=== PATIENT | male | born 1965 | race Caucasian/White ===

== ENCOUNTER 2024-03-27 13:45 | Outpatient (AMB) | payer BC, SELFPAY ==
--- NOTE | 2024-03-27 13:48 | HO.NEPHOV_ITS ---
Vital Signs 03/27/24 13:50 03/27/24 14:16 Height 5 ft 9 in Weight 209 lb 4 oz BMI 30.9 BP 124/90 H 120/82 Blood Pressure Location Lt brachial Lt brachial Position Sitting Sitting Pulse 71 Pulse Source Pulse Oximeter Pulse Oximetry (%) 94 Oxygen Delivery Method Room Air Intake Visit Reasons: Hyperuricemia/ continuing care/ Confirmed Aligning Inspector Required: No Accompanied by: Self / Same As Patient Allergies No Known Allergies Allergy (Verified 03/27/24 13:53) HPI Comments Details: 58-year-old man with history of hypertension and mild CKD. Serum creatinine has been around 1.71.8 mg/dL since 2010. He has a history of gout for more than 20 years. He was on allopurinol which was stopped and he had an episode of gout after discontinuing allopurinol and subsequently start her on Uloric. No further gout episodes. MRI showed fatty liver with asymptomatic gallstones. He is undergone cholecystectomy. During his last visit the lisinopril was discontinued since his blood pressure was relatively low and he did not have significant proteinuria. Today he is here for semiannual follow-up. No specific complaints today. He is gained about 10 lb. [facility] Medical History (Updated 03/27/24 @ 14:13 by Tomi Garcia MD) HTN (hypertension) Surgical History (Updated 03/27/24 @ 13:55 by Brianna Lehman MA) History of cholecystectomy Social History (Updated 03/27/24 @ 13:55 by Brianna Lehman MA) Alcohol intake: never Patient Tobacco Use Status: Never used Tobacco Physical Exam Vital Signs: Last Vital Signs Pulse 71 03/27/24 13:50 BP 124/90 H 03/27/24 13:50 Pulse Ox 94 03/27/24 13:50 Oxygen Delivery Method Room Air 03/27/24 13:50 BMI result Body Mass Index 30.9 Const General: comfortable Nutritional Appearance: well nourished Orientation/consciousness: patient oriented x3 HEENT Head: No normal to inspection Mouth: moist mucous membranes Neck Neck: Yes supple and Yes no JVD Resp Auscultation: clear to auscultation bilaterally, no rales and rub present Cardio Jugular venous distension: no JVD Palpation: no palpable S3 and no palpable S4 Heart sounds: no rubs GI Palpation (GI): Soft to palpation and nontender Percussion: No Fluid wave present General: Yes no CVA tenderness Back/Spine/Pelvis Back: no CVA tenderness Skin General skin exam: no rashes or lesions noted Neuro General: patient oriented x3 Extrem General: Yes no pedal edema and No clubbing Results Reviewed Results Reviewed: Labs are pending Nephrology Results: No Data to Display Assessment & Plan Assessment & Plan (1) HTN (hypertension): Code(s): I10 - Essential (primary) hypertension Category: Medical (2) CKD (chronic kidney disease): Code(s): N18.9 - Chronic kidney disease, unspecified Category: Medical (3) Gout: Code(s): M10.9 - Gout, unspecified Category: Medical Plan 58-year-old man with longstanding hypertension and CKD. Renal function stable. We will recheck the serum creatinine today. Goal is to slow the portion disease Continue to avoid nephrotoxic agents including NSAIDs Blood pressure is well controlled. Stay on current medications discussed weight loss. He should stay on low-sodium diet Gout stable. Continue with Uloric stay on low purine diet History of microalbuminuria. The recent microalbumin creatinine ratio was less than 6. He has currently not on TERESITA inhibitors since his blood pressure is well controlled we will monitor urine protein excretion and restart TERESITA inhibitors if needed Orders: Orders Basic Metabolic Panel Today I10 - Essential (primary) hypertension Total Protein Urine Random Today I10 - Essential (primary) hypertension Creatinine Urine Today I10 - Essential (primary) hypertension, N05.9 - Unspecified nephritic syndrome with unspecified morphologic changes Uric Acid Today I10 - Essential (primary) hypertension Coding Level of Care Code Est Pt Level 4 (30163) Diagnoses HTN (hypertension) I10 CKD (chronic kidney disease) N18.9 Gout M10.9
[2024-03-27 13:50] VITALS: BP 124/90; PULSE 71; O2SAT 94; BMI 30.9
[2024-03-27 14:16] VITALS: BP 120/82
== END 2024-03-27 14:10 | disposition home or self-care (01) ==
PROVIDERS: PCP Internal Medicine; Visit Provider Internal Medicine Hypertension Specialist
DX: I12.9 Hypertensive chronic kidney disease with stage 1 through stage 4 chronic kidney disease, or unspecified chronic kidney disease (principal); N18.9 Chronic kidney disease, unspecified; M10.9 Gout, unspecified
CPT/HCPCS: 99214

== ENCOUNTER → 2024-03-27 13:45 | Outpatient (BNVA) | payer BC, SELFPAY | PROVIDERS: PCP Internal Medicine; Visit Provider Internal Medicine Hypertension Specialist | DX: I10 Essential (primary) hypertension (principal); N18.9 Chronic kidney disease, unspecified; M10.9 Gout, unspecified ==

== ENCOUNTER 2024-12-25 13:37 | Outpatient (AMB) | payer BC, SELFPAY ==
[2024-12-25 13:39] VITALS: BP 128/86; PULSE 75; O2SAT 96; BMI 31.0
--- NOTE | 2024-12-25 13:39 | HO.NEPHOV_ITS ---
Vital Signs 12/25/24 13:39 Height 5 ft 9 in Weight 210 lb BMI 31.0 BP 128/86 Blood Pressure Location Lt brachial Position Sitting Pulse 75 Pulse Source Pulse Oximeter Pulse Oximetry (%) 96 Oxygen Delivery Method Room Air Intake Visit Reasons: Hyperuricemia/ 9 month follow up/ lvm Sales And Leasing Agent Required: No Accompanied by: Self / Same As Patient Allergies No Known Allergies Allergy (Verified 12/25/24 13:41) Medication List - Last Reconciled 12/25/24 by Tomi Garcia MD atenolol 25 mg PO DAILY cetirizine (Zyrtec) 10 mg PO DAILY febuxostat 40 mg PO DAILY fluticasone propionate 50 mcg/actuation 1 spray intranasal DAILY lutein 20 mg PO DAILY montelukast 10 mg PO DAILY multivitamin 1 tab PO DAILY omega 8-zzh-slm-fish oil 1,000 (120-180) mg (Fish Oil) 1 cap PO DAILY vit C-E-zinc ex-xfze-ufi-zeax 250 mg-200 unit -12.5 mg-1 mg (ICaps AREDS2) caps PO DAILY HPI Comments Details: 59-year-old man with history of hypertension and mild CKD. Serum creatinine has been around 1.7 to 1.8 mg/dL since 2010. He has a history of gout for more than 20 years. He was on allopurinol which was stopped and he had an episode of gout after discontinuing allopurinol and subsequently start her on Uloric. No further gout episodes. MRI showed fatty liver with asymptomatic gallstones. He is undergone cholecystectomy. During his last visit the lisinopril was discontinued since his blood pressure was relatively low and he did not have significant proteinuria. Today he is here for semiannual follow-up. No specific complaints today. He is gained about 10 lb. 12/25/23 Overall doing well Recently had URT infection and resolved PFSH Medical History (Updated 03/27/24 @ 14:13 by Tomi Garcia MD) HTN (hypertension) Surgical History History of cholecystectomy Social History Alcohol intake: never Patient Tobacco Use Status: Never used Tobacco Physical Exam Vital Signs: BMI result Body Mass Index 31.0 Results Reviewed Nephrology Results: No Data to Display Assessment & Plan Assessment & Plan (1) HTN (hypertension): Code(s): I10 - Essential (primary) hypertension Category: Medical (2) CKD (chronic kidney disease): Code(s): N18.9 - Chronic kidney disease, unspecified Category: Medical (3) Gout: Code(s): M10.9 - Gout, unspecified Category: Medical Plan 58-year-old man with longstanding hypertension and CKD. Renal function stable. We will recheck the serum creatinine today. Goal is to slow the progression of renal disease Continue to avoid nephrotoxic agents including NSAIDs Blood pressure is well controlled. Stay on current medications discussed weight loss. He should stay on low-sodium diet Gout stable. Continue with Uloric stay on low purine diet History of microalbuminuria. The recent microalbumin creatinine ratio was less than 6. He has currently not on TERESITA inhibitors since his blood pressure is well controlled we will monitor urine protein excretion and restart TERESITA inhibitors if needed Orders: Orders Uric Acid Today I10 - Essential (primary) hypertension, M10.9 - Gout, unspecified, N18.9 - Chronic kidney disease, unspecified Basic Metabolic Panel Today I10 - Essential (primary) hypertension, M10.9 - Gout, unspecified, N18.9 - Chronic kidney disease, unspecified Complete Blood Count no Diff Today I10 - Essential (primary) hypertension, M10.9 - Gout, unspecified, N18.9 - Chronic kidney disease, unspecified Coding Level of Care Code Est Pt Level 4 (57892) Diagnoses HTN (hypertension) I10 CKD (chronic kidney disease) N18.9 Gout M10.9
--- OUTSIDE RECORDS SUMMARY | 2024-12-25 15:00 | XMS_ITS | Clinical Summary ---
Author Organization [facility] Address [address] [place] [id number] Care Team Providers Care Utility Specialist Name Role Phone Matteo Leon MD Primary Care Provider Tania Austin PA-C Unavailable [phone] Aniyah Whitt RN Unavailable [phone] Matteo Leon MD Unavailable [phone] Allergies Active Allergy Reactions Criticality Noted Date Comments Other Other (See Comments) 10/17/2016 Dust causes stuffiness Medications Medication Sig Dispensed Refills Start Date End Date Status allopurinol (ZYLOPRIM) 100 mg tablet Take 100 mg by mouth nightly. Active atenolol (TENORMIN) 25 MG tablet Take 25 mg by mouth nightly. Active lisinopril (PRINIVIL,ZeSTRIL) 5 MG tablet Take 5 mg by mouth nightly. Active cetirizine (ZyrTEC) 10 MG tablet Take 10 mg by mouth nightly. Active montelukast (SINGULAIR) 10 MG tablet Take 10 mg by mouth nightly. Active Multiple Vitamin (MULTIVITAMIN) capsule Take 1 capsule by mouth daily. Active oxyCODONE-acetaminoph en (PERCOCET) 5-325 mg per tabletIndications:Chr onic pansinusitis Take 1 tablet by mouth every 4 (four) hours as needed for moderate pain. Max Daily Amount: 6 tablets 30 tablet 0 10/19/2016 Active fish oil-omega-3 fatty acids 1000 MG capsule Take by mouth. Active colchicine (COLCRYS) 0.6 mg tablet 04/09/2021 Active cetirizine-pseudoephe drine (ZyrTEC-D Allergy & Congestion) 5-120 MG per tablet by Does not apply route. 05/04/2020 Active dicyclomine (BENTYL) 10 MG capsule 04/13/2021 Active Omeprazole 20 MG Tablet Delayed Release Dispersible Take 20 mg by mouth. 04/13/2021 Active predniSONE (DELTASONE) 20 MG tablet TAKE 3 DAILY FOR 3 DAYS 04/09/2021 Active Active Problems Problem Noted Date Diagnosed Date Elevated LFTs 04/27/2021 Assessment & Plan (04/27/2021 12:09 PM EDT): Elevated AST of 389 and ALT of 323, elevated total bilirubin of 1.7 at ED visit on 04/13/21. Lipase was also slightly elevated at 92. Will repeat lab work including CBC, CMP and lipase Will obtain abdominal ultrasound to evaluate biliary system to rule out stones/obstruction Will call patient with results Epigastric pain 04/27/2021 Assessment & Plan (04/27/2021 12:10 PM EDT): Will obtain abdominal ultrasound and updated labs as stated above ?biliary causes vs acid Continue with omeprazole 20 mg once daily for now Will determine next steps once imaging and lab work is completed ?Need for ERCP vs EGD Avoid/limit tobacco, alcohol, chocolate, peppermint, caffeine, greasy foods, spicy foods, and acidic foods such as citrus and tomato. Eat smaller, more frequent meals, and do not eat within 2 hours of bedtime. If you have night-time symptoms, elevate the head of the bed 6 to 12 inches. Personal history of colonic polyps 04/27/2021 Assessment & Plan (04/27/2021 12:11 PM EDT): High fiber diet. Adenoma-carcinoma sequence discussed. Last colon: 2008--will attempt to get report from last colonoscopy. Polyps removed per patient +10 years since last colonoscopy Will discuss repeating colonoscopy after the above is completed Social History Tobacco Use Types Packs/Day Years Used Date Smoking Tobacco: Never Alcohol Use Standard Drinks/Week Comments Not Currently 0 (1 standard drink = 0.6 oz pur e alcohol) 2 x year Sex and Gender Information Value Date Recorded Sex Assigned at Not on file Gender Identity Not on file Sexual Orientation Not on file Last Filed Vital Signs Vital Sign Reading Time Taken Comments Blood Pressure 120/98 05/25/2021 9:05 AM EDT Pulse 67 05/25/2021 9:05 AM EDT Temperature 35.9 ??C (96.7 ??F) 05/25/2021 9:05 AM ED T Respiratory Rate 21 10/19/2016 1:45 PM EST Oxygen Saturation 96% 05/25/2021 9:05 AM EDT Inhaled Oxygen Concentration - - Weight 88.5 kg (195 lb) 05/25/2021 9:05 AM EDT Height 175.3 cm (5' 9 ) 05/25/2021 9:05 AM EDT Body Mass Index 28.8 05/25/2021 9:05 AM EDT Plan of Treatment Health Maintenance Due Date Last Done Comments Hepatitis C Virus Screening 1967 HIV Screening 1980 DTaP/Tdap/Td Vaccines (1 - Tdap) 1986 Hepatitis B Vaccines (1 of 3 - 19+ 3-dose series) 1986 Colonoscopy 2012 Pneumococcal Vaccines 50+ (1 of 1 - PCV) 2017 Zoster (Shingles) Vaccine (1 of 2) 2017 Influenza Vaccine 06/20/2024 09/01/2021, 08/20/2020 COVID-19 Vaccine (4 - 2023-2 5 season) 2024 11/10/2021, 03/16/2021, 02/17/2021 Pneumococcal Vaccine: Pediatric (0-5 Years) and At-Risk Patients (6 to 49 Years) Aged Out No longer eligible b ased on patient's age to complete this topic Advance Directives * Full Code (Latest Code Status on File) Date Activated Date Inactivated Comments 10/19/2016 8:53 AM 10/19/2016 5:08 PM Care Teams Utility Specialist Relationship Specialty Start Date End Date Matteo Leon MD [address] [place] [address] PCP - General Internal Medicine 04/26/21 Matteo Leon MD [address] [place] [address] PCP - [place] [employer] Attributed 09/20/21 Tania Austin PA-C [address] [place] [address] Physician [employer] [facility] 05/11/21 Aniyah Whitt, RN [address] [place] [id number] Registered Nurse Hepatology 05/11/21
--- OUTSIDE RECORDS SUMMARY | 2024-12-25 15:00 | XMS_ITS | Clinical Summary ---
Author Organization [facility] Address [address] [address] Care Team Providers Care Investigator Vice Name Role Phone Matteo Leon MD Primary Care Provider [phone] Allergies Active Allergy Reactions Criticality Noted Date Comments Other Other (see comments) 10/17/2016 Dust causes stuffiness Medications cetirizine (ZyrTEC) 10 MG tablet Take 10 mg by mouth Active fluticasone (FLONASE) 50 MCG/ACT nasal spray Administer 1 spray into each nostril 1 (one) time each day Active montelukast (SINGULAIR) 10 MG tablet 1 Active Multiple Vitamin (multivitamin) capsule Take 1 capsule by mouth 1 (one) time each day Active omega-3 (FISH OIL) 1000 MG capsule Take by mouth Active lisinopril 5 MG tablet TAKE 1 TABLET ONCE DAILY 90 tablet 3 2 Active atenolol (TENORMIN) 25 MG tablet TAKE 1 TABLET DAILY 90 tablet 3 3 Active Misc Natural Products (LUTEIN 20 PO) Take by mouth A ctive Active Problems Problem Noted Date Diagnosed Date Chronic kidney disease stage 3 08/11/2021 Hypertensive chronic kidney disease, unspecified, with chronic kidney disease stage I through stage IV, or unspecified 08/11/2021 Polycythemia, secondary 08/11/2021 Epigastric pain 04/27/2021 Overview (08/11/2021): Last Assessment & Plan: Will obtain abdominal ultrasound and updated labs [...] of the bed 6 to 12 inches. History of polyp of colon 04/27/2021 Overview (08/11/2021): Last Assessment & Plan: High fiber diet. Adenoma-carcinoma sequence discussed. Last colon: 2008--will attempt to get report from last colonoscopy. Polyps removed per patient +10 years since last colonoscopy Will discuss repeating colonoscopy after the above is completed Liver function tests outside reference range 06/2021 Overview (08/11/2021): Last Assessment & Plan: Elevated AST of 389 and ALT of 323, elevated total bilirubin of 1.7 at ED visit on 04/13/21. Lipase was also slightly elevated at 92. Will repeat lab work including CBC, CMP and lipase Will obtain abdominal ultrasound to evaluate biliary system to rule out stones/obstruction Will call patient with results Family History Relation Status Comments Father Unknown Mother Unknown Social History Tobacco Use Types Packs/Day Years Used Date Smoking Tobacco: Never Smokeless Tobacco: Never Tobacco Cessation:Counseling Given: No Alcohol Use Standard Drinks/Week Comments No 0 (1 standard drink = 0.6 oz pur e alcohol) Sex and Gender Information Value Date Recorded Sex Assigned at Not on file Legal Sex Male 5:01 PM EST Gender Identity Not on file Sexual Orientation Not on file Last Filed Vital Signs Vital Sign Reading Time Taken Comments Blood Pressure 104/62 07/11/2023 1:24 PM EDT Pulse 69 07/11/2023 1:24 PM EDT Temperature - - Respiratory Rate - - Oxygen Saturation 97% 07/11/2023 1:24 PM EDT Inhaled Oxygen Concentration - - Weight 90.7 kg (200 lb) 07/11/2023 1:24 PM EDT Height 175.3 cm (5' 9 ) 10/27/2020 12:00 PM EST Body Mass Index 29.53 10/27/2020 12:00 PM EST Plan of Treatment Health Maintenance Due Date Last Done Comments Pneumococcal Vaccine: Pediat rics (0 to 5 Years) and At-Risk Patients (6 to 64 Years) (1 of 2 - PCV) 1973 Hepatitis B Vaccine (1 of 3 - 19+ 3-dose series) 10/26 Colorectal Cancer Screening: Annual FOBT 2016 Colorectal Cancer Screening: Colonoscopy 2016 Colorectal Cancer Screening: Sigmoidoscopy 2016 Influenza Vaccine (#1) [address] Care Teams Investigator Vice Relationship Specialty Start Date End Date Matteo Leon MD [address] [place], [place] PCP - General 11/30/20
--- OUTSIDE RECORDS SUMMARY | 2024-12-25 15:00 | XMS_ITS | Clinical Summary ---
Author Organization [employer] [facility] Address [address] [place] [address] Care Team Providers Care Concrete Puddler Name Role Phone Matteo Leon MD Primary Care Provider [phone] Surgical History Surgery Date Site/Laterality Comments NASAL POLYP EXCISION PROCEDURE:NASAL POLYP EXCISION;COMMENT:x2 COLONOSCOPY PROCEDURE:COLONOSCOPY CHOLECYSTECTOMY 09/17/2021 N/A PROCEDURE:CHOLECYSTECTOMY;COMMENT:Pro cedure: LAPAROSCOPY CHOLECYSTECTOMY; Surgeon: Carrie Adams MD; Location: [facility]; Service: General; Laterality: N/A; Medical History Medical History Date Comments Hypertension DX:Hypertension Gout DX:Gout Environmental allergies DX:Envir onmental allergies Family History Medical History Relation Name Comments Diabetes Maternal Grandmother Relation Name Status Comments Maternal Grandmother Social History Tobacco Use Types Packs/Day Years Used Date Smoking Tobacco: Never Smokeless Tobacco: Never Alcohol Use Standard Drinks/Week Comments Yes 0 (1 standard drink = 0.6 oz pur e alcohol) Sex and Gender Information Value Date Recorded Sex Assigned at Not on file Gender Identity Not on file Sexual Orientation Not on file Obstetrics History Plan of Treatment Health Maintenance Due Date Last Done Comments DTaP,Tdap,and Td Vaccines (1 - Tdap) 1986 Hepatitis B Vaccines (1 of 3 - 19+ 3-dose series) 1986 Zoster Vaccines (1 of 2) 2017 Cholesterol Screening (Lipid Panel) 10/23/2022 Colorectal Cancer Screening: Colonoscopy 10/23/2022 Depression Screening 10/23/2022 HIV Screening 10/23/2022 Hepatitis C Screening 10/23/2022 Social Influencers of Health Screening 10/23/2022 COVID-19 Vaccine (1 2023-2 5 season) 2024 Influenza Vaccine (#1) 2024 HIB Vaccines Aged Out No longer eligi ble based on patient's age to complete this topic HPV Vaccines Aged Out No longer eligi ble based on patient's age to complete this topic Hepatitis A Vaccines Aged Out No long er eligible based on patient's age to complete this topic IPV Vaccines Aged Out No longer eligi ble based on patient's age to complete this topic MMR Vaccines Aged Out No longer eligi ble based on patient's age to complete this topic Meningococcal ACWY Vaccine Aged Out N o longer eligible based on patient's age to complete this topic Pneumococcal Vaccine: Pediat rics (0 to 5 Years) and At-Risk Patients (6 to 64 Years) Aged Out No longer eligible b ased on patient's age to complete this topic RSV Immunization Patients Un donnie 20 months Aged Out No longer eligible b ased on patient's age to complete this topic Varicella Vaccines Aged Out No longer eligible based on patient's age to complete this topic Advance Directives Documents on File Type Date Recorded Patient Cargo Station Worker Expl anation Health Care Decision (hx) 09/17/2021 CINDY LOYA WILL Care Teams Concrete Puddler Relationship Specialty Start Date End Date Matteo Leon MD [address] [place] [id number] PCP - General Internal Medicine 04/13/21
--- OUTSIDE RECORDS SUMMARY | 2024-12-25 15:00 | XMS_ITS ---
Author Name [facility] Organization Unknown History of Medication Use Medication Directions Dispensed Refills Start Date End Date Stat us luteinTakeNo date recordedNo form recordedNo frequency recordedNo route recordedNo set duration recordedNo set duration amount recordedactiveNo dosage strength recordedNo dosage strength units of measure recorded active Medrol (Veto)Take 6 t ablet (Oral) 1 time per day for 1 days Take One Pack As [id number],do se pack1 time per [id number] 09/17/2023 active Bactrim DSTake 1 Tab let (oral) 2 times per day for 10 [id number] times per [id number]- 160mg 12/23/2021 suspended ZyrtecTakeNo date recordedNo form recordedNo frequency recordedNo route recordedNo set duration recordedNo set duration amount recordedactiveNo dosage strength recordedNo dosage strength units of measure recorded active Flonase Allergy ReliefTakeNo date recordedNo form recordedNo frequency recordedNo route recordedNo set duration recordedNo set duration amount recordedactiveNo dosage strength recordedNo dosage strength units of measure recorded active SingulairTakeNo date recordedNo form recordedNo frequency recordedNo route recordedNo set duration recordedNo set duration amount recordedactiveNo dosage strength recordedNo dosage strength units of measure recorded active multivitaminTakeNo d ate recordedNo form recordedNo frequency recordedNo route recordedNo set duration recordedNo set duration amount recordedactiveNo dosage strength recordedNo dosage strength units of measure recorded active Problems Problem Status Onset Date Problem Type Date of Resoluti on Source Idiopathic gout, unspecified site active 2021-04-09 [facility] [facility] Impacted cerumen, bilateral active 2023-09-17 [facility]Act [facility] Essential (primary) hypertension active [facility]Act [facility] Jaw pain active 2023-09-17 [facility] [facility] [place] Chronic kidney disease, unspecified active 2021-04-09 ProblemAct [facility]
== END 2024-12-25 13:56 | disposition home or self-care (01) ==
PROVIDERS: PCP Internal Medicine; Visit Provider Internal Medicine Hypertension Specialist
DX: I12.9 Hypertensive chronic kidney disease with stage 1 through stage 4 chronic kidney disease, or unspecified chronic kidney disease (principal); N18.9 Chronic kidney disease, unspecified; M10.9 Gout, unspecified
CPT/HCPCS: 99214

== ENCOUNTER → 2024-12-25 13:37 | Outpatient (BNVA) | payer BC, SELFPAY | PROVIDERS: PCP Internal Medicine; Visit Provider Internal Medicine Hypertension Specialist | DX: I10 Essential (primary) hypertension (principal) ==

== ENCOUNTER 2025-10-01 13:25 | Outpatient (AMB) | payer BC, SELFPAY ==
[2025-10-01 13:31] VITALS: BP 120/80; PULSE 68; O2SAT 96; BMI 31.3
--- NOTE | 2025-10-01 13:31 | HO.NEPHOV ---
Vital Signs 10/01/25 13:31 Height 5 ft 9 in Weight 212 lb BMI 31.3 BP 120/80 Blood Pressure Location Rt brachial Position Sitting Pulse 68 Pulse Source Pulse Oximeter Pulse Oximetry (%) 96 Oxygen Delivery Method Room Air Intake Visit Reasons: 9 Month F/U Health Policy Analyst Required: No Accompanied by: Self / Same As Patient Allergies No Known Allergies Allergy (Verified 10/01/25 13:33) Medication List - Last Reconciled 10/01/25 by Tomi Garcia MD atenolol 25 mg PO DAILY cetirizine (Zyrtec) 10 mg PO DAILY febuxostat 40 mg PO DAILY fluticasone propionate 50 mcg/actuation 1 spray intranasal DAILY lutein 20 mg PO DAILY montelukast 10 mg PO DAILY multivitamin 1 tab PO DAILY omega 5-xul-xxg-fish oil 1,000 (120-180) mg (Fish Oil) 1 cap PO DAILY vit C-E-zinc ym-nnfb-tcf-zeax 250 mg-200 unit -12.5 mg-1 mg (ICaps AREDS2) caps PO DAILY HPI Comments Details: 59-year-old man with history of hypertension and mild CKD. Serum creatinine has been around 1.7 to 1.8 mg/dL since 2010. He has a history of gout for more than 20 years. He was on allopurinol which was stopped and he had an episode of gout after discontinuing allopurinol and subsequently start her on Uloric. No further gout episodes. MRI showed fatty liver with asymptomatic gallstones. He is undergone cholecystectomy. During his last visit the lisinopril was discontinued since his blood pressure was relatively low and he did not have significant proteinuria. Today he is here for semiannual follow-up. No specific complaints today. He is gained about 10 lb. 12/25/23 Overall doing well; Recently had URT infection and resolved 10/01/25 The patient is a 59-year-old male presenting for a 9-month follow-up visit. The patient reports stable blood pressure readings, with a recent measurement of 120/80 mmHg, and no changes in medication since the last visit. The patient is currently taking febuxostat, atenolol, and montelukast, with no reported side effects such as lightheadedness. The patient reports heel pain, likely due to plantar fasciitis, which has improved with the use of proper footwear. The pain was exacerbated by wearing ill-fitting shoes during a sporting event with extensive walking. The patient had a blood test after the last visit in December, with results showing stable values except for a consistently elevated parameter at 1.84. The patient is scheduled for a follow-up blood and urine test before the next visit, as previous tests have shown stability. [facility] Medical History (Updated 03/27/24 @ 14:13 by Tomi Garcia MD) HTN (hypertension) Surgical History History of cholecystectomy Social History Alcohol intake: never Patient Tobacco Use Status: Never used Tobacco Physical Exam Vital Signs: Last Vital Signs Pulse 68 10/01/25 13:31 BP 120/80 10/01/25 13:31 Pulse Ox 96 10/01/25 13:31 Oxygen Delivery Method Room Air 10/01/25 13:31 BMI result Body Mass Index 31.3 Comfortable Neck supple no JVD. Lungs entry equal no rales. Heart S1-S2 heard no gallop or rub. Abdomen soft nontender. Neuro alert awake oriented. No asterixis. Extremities no edema. Const General: comfortable Nutritional Appearance: well nourished Orientation/consciousness: patient oriented x3 HEENT Head: No normal to inspection Mouth: moist mucous membranes Neck Neck: Yes supple and Yes no JVD Resp Auscultation: clear to auscultation bilaterally, no rales and rub present Cardio Jugular venous distension: no JVD Palpation: no palpable S3 and no palpable S4 Heart sounds: no rubs GI Palpation (GI): Soft to palpation and nontender Percussion: No Fluid wave present General: Yes no CVA tenderness Back/Spine/Pelvis Back: no CVA tenderness Skin General skin exam: no rashes or lesions noted Neuro General: patient oriented x3 Extrem General: Yes no pedal edema and No clubbing Assessment & Plan Assessment & Plan (1) HTN (hypertension): Code(s): I10 - Essential (primary) hypertension Category: Medical (2) CKD (chronic kidney disease): Code(s): N18.9 - Chronic kidney disease, unspecified Category: Medical (3) Gout: Code(s): M10.9 - Gout, unspecified Category: Medical Plan 59-year-old man with longstanding hypertension and CKD. Renal function stable. We will recheck the serum creatinine today. Goal is to slow the progression of renal disease Continue to avoid nephrotoxic agents including NSAIDs Blood pressure is well controlled. Stay on current medications discussed weight loss. He should stay on low-sodium diet Gout stable. Continue with Uloric stay on low purine diet History of microalbuminuria. The recent microalbumin creatinine ratio was less than 6. He has currently not on TERESITA inhibitors since his blood pressure is well controlled we will monitor urine protein excretion and restart TERESITA inhibitors if needed Orders: Orders Creatinine Urine 9 Months I10 - Essential (primary) hypertension, N18.9 - Chronic kidney disease, unspecified UA and rflx microscopic 9 Months I10 - Essential (primary) hypertension, N18.9 - Chronic kidney disease, unspecified Total Protein Urine Random 9 Months I10 - Essential (primary) hypertension, N18.9 - Chronic kidney disease, unspecified Basic Metabolic Panel 9 Months I10 - Essential (primary) hypertension, N18.9 - Chronic kidney disease, unspecified Complete Blood Count Auto Diff 9 Months I10 - Essential (primary) hypertension, N18.9 - Chronic kidney disease, unspecified Coding Level of Care Code Est Pt Level 4 (19362) Diagnoses HTN (hypertension) I10 CKD (chronic kidney disease) N18.9 Gout M10.9
--- OUTSIDE RECORDS SUMMARY | 2025-10-01 16:17 | XMS_ITS | Clinical Summary ---
Author Organization [email or web address] [employer] it Address [address] [place] [address] Care Team Providers Care Car Hop Name Role Phone Matteo Leon MD Primary Care Provider [phone] Surgical History Surgery Date Site/Laterality Comments NASAL POLYP EXCISION PROCEDURE:NASAL POLYP EXCISION;COMMENT:x2 COLONOSCOPY PROCEDURE:COLONOSCOPY CHOLECYSTECTOMY 09/17/2021 N/A PROCEDURE:CHOLECYSTECTOMY;COMMENT:Pro cedure: LAPAROSCOPY CHOLECYSTECTOMY; Surgeon: Carrie Adams MD; Location: [facility]; Service: General; Laterality: N/A; Medical History [...] at Not on file Legal Sex Male 6:56 AM EST Gender Identity Not on file Sexual Orientation Not on file Obstetrics History Plan of Treatment Health Maintenance Due Date Last Done Comments Colorectal Cancer Screening: Colonoscopy 1967 DTaP,Tdap,and Td Vaccines (1 - Tdap) 1986 Hepatitis B Vaccines (1 of 3 - 19+ 3-dose series) 1986 Pneumococcal Vaccine: 50+ Ye ars (1 of 1 - PCV) 2017 Zoster Vaccines (1 of 2) 2017 Cholesterol Screening (Lipid Panel) 10/23/2022 HIV Screening 10/23/2022 Hepatitis C Screening 10/23/2022 Social Influencers of Health Screening 10/23/2022 Depression Screening 11/20/2024 COVID-19 Vaccine (1 - 2024-2 6 season) 2025 Influenza Vaccine (#1) 2025 RSV Immunization Adult Patie nts (1 - 1-dose 75+ series) 2042 HIB Vaccines Aged Out No longer eligi [...] patient's age to complete this topic Meningococcal B Vaccine Aged Out No l onger eligible based on patient's age to complete this topic RSV Immunization Patients Un donnie 20 months Aged Out No longer eligible b ased on patient's age to complete this topic Varicella Vaccines Aged Out No longer eligible based on patient's age to complete this topic Advance Directives Documents on File Type Date Recorded Patient Product Safety Engineer Expl anation Health Care Decision (hx) 09/17/2021 CINDY LOYA WILL Care Teams Car Hop Relationship Specialty Start Date End Date Matteo Leon MD [address] [place] [address] PCP - General Internal Medicine 04/13/21
--- OUTSIDE RECORDS SUMMARY | 2025-10-01 16:17 | XMS_ITS | Clinical Summary ---
Author Organization [facility] Address [address] [place] [address] Care Team Providers Care Instructor Business Education Name Role Phone Matteo Leon MD Primary Care Provider [phone] Allergies Active Allergy Reactions Criticality Noted Date Comments Other Other (See Comments) 10/17/2016 Dust causes stuffiness Dust causes stuffiness Medications Medication Sig Dispensed Refills Start Date End Date Status atenolol (TENORMIN) tablet 25 mg Take 25 mg by mouth daily. 0 02/04/2021 Active lisinopril (PRINIVIL,ZESTRIL) tablet 5 mg Take 5 mg by mouth daily. 0 04/02/2021 Active cetirizine (ZyrTEC) 10 MG tablet Take 10 mg by mouth daily. 0 Active montelukast (SINGULAIR) 10 MG tablet Take 10 mg by mouth every night at bedtime. 0 02/04/2021 Active Multiple Vitamin (multivitamin) capsule Take 1 capsule by mouth daily. 0 Active Raymond-3 Fatty Acids (FISH OIL PO) Take 1 caplet by mouth daily. 0 Active Multiple Vitamins-Minerals (PreserVision AREDS) CAPS Take 1 capsule by mouth 2 (two) times a day. 0 Active Misc Natural Products (LUTEIN 20 PO) Take 20 mg by mouth daily. 0 Active fluticasone (FLONASE) 50 MCG/ACT nasal spray spray or apply 1 spray inside Nose daily. 0 Active febuxostat (ULORIC) 40 MG tablet 0 06/24/2023 Active methylPREDNISolone (MEDROL DOSEPACK) 4 MG tablet FOLLOW PACKAGE DIRECTIONS 0 09/17/2023 Active Active Problems No known active problems Family History Medical History Relation Name Comments Diabetes Maternal Grandmother Relation Name Status Comments Maternal Grandmother Social History Tobacco Use Types Packs/Day Years Used Date Smoking Tobacco: Never Smokeless Tobacco: Never Alcohol Use Standard Drinks/Week Comments Yes 0 (1 standard drink = 0.6 oz pur e alcohol) very rarely Sex and Gender Information Value Date Recorded Sex Assigned at Male 04/13/2021 8:15 AM EDT Gender Identity Not on file Sexual Orientation Not on file Job Start Date Occupation Industry Not on file Not on file Not on file Last Filed Vital Signs Vital Sign Reading Time Taken Comments Blood Pressure 137/97 09/18/2023 8:22 AM EDT Pulse 82 09/18/2023 8:22 AM EDT Temperature 36.6 C (97.8 F) 09/18/2023 8:22 AM EDT Respiratory Rate 16 09/18/2023 8:22 AM EDT Oxygen Saturation 97% 09/18/2023 8:22 AM EDT Inhaled Oxygen Concentration - - Weight 90.7 kg (200 lb) 09/18/2023 8:22 AM EDT Height 175.3 cm (5' 9 ) 09/18/2023 8:22 AM EDT Body Mass Index 29.53 09/18/2023 8:22 AM EDT Plan of Treatment Health Maintenance Due Date Last Done Comments Hepatitis B Vaccines (1 of 3 - 3-dose series) 1967 Hepatitis C Screening 1967 COVID-19 Vaccine (#1) 04/26/1968 Depression Screening 1979 BMI Counseling 1985 Preventative Health Evaluation 1985 DTap / Tdap / Td (1 - Tdap) 1986 Colon Cancer Screening (Colonoscopy) 2012 Shingrix-Zoster Vaccine (1 o f 2) 2017 Influenza Vaccine (#1) 2025 , 08/20/2020 Pneumococcal Vaccine Aged Out No long er eligible based on patient's age to complete this topic RSV Ped < 20 months Aged Out No longe r eligible based on patient's age to complete this topic Advance Directives For more information, please contact: [phone] Documents on File Type Date Recorded Patient Full Time Paramedic Expl anation Power of Shock Absorption Floor Layer 09/18/2023 8:13 AM Latest Code Status on File Code Status Date Activated Date Inactivated Comments Full Code 09/17/2021 8:16 AM 09/17/2021 6:38 PM Thi s code status was ascertained in the following way: discussion with patient . Care Teams Instructor Business Education Relationship Specialty Start Date End Date Matteo Leon MD [address] Matteo Leon MD [place], [place] [address] PCP - General Internal Medicine 04/13/21
== END 2025-10-01 13:46 | disposition home or self-care (01) ==
LOC: HO.HKAE 13:25
PROVIDERS: PCP Internal Medicine; Visit Provider Internal Medicine Hypertension Specialist
DX: I12.9 Hypertensive chronic kidney disease with stage 1 through stage 4 chronic kidney disease, or unspecified chronic kidney disease (principal); N18.9 Chronic kidney disease, unspecified; M10.9 Gout, unspecified
CPT/HCPCS: 99214